=== PATIENT | female | born 1995 | race American Indian/Alaskan Native ===

== ENCOUNTER 2023-02-27 15:11 | Emergency (ER) | payer SELFPAY ==
[2023-02-27] MEDS ORDERED: methylPREDNISolone Sod Succ/PF 125 MG/2 ML VIAL ONE (15:51)
[2023-02-27] MEDS ORDERED: Metoclopramide HCl 10 MG/2 ML VIAL ONE (15:52)
[2023-02-27] MEDS ORDERED: Ketorolac Tromethamine 30 MG/ML VIAL ONE (15:52)
[2023-02-27] MEDS ORDERED: diphenhydrAMINE 50 MG/ML VIAL ONE (15:52)
== END 2023-02-27 17:09 | disposition home or self-care (01) ==
LOC: CSHERS 15:11
DX: G43.909 Migraine, unspecified, not intractable, without status migrainosus (principal)
CPT/HCPCS: 96365; 96375; J1200; J1885; J2765; J2930